=== PATIENT | female | born 1960 | race Caucasian/White ===

== ENCOUNTER 2023-05-23 08:04 | Outpatient (REF) | payer BC, SELFPAY ==
--- NOTE | ~2023-05-23 | XR_ITS ---
EXAMINATION: XR SHOULDER, LEFT CLINICAL INFORMATION: Left shoulder pain COMPARISON: None available. TECHNIQUE: Two views of the left shoulder. FINDINGS: The bones and soft tissues are normal. No fracture. Glenohumeral and acromioclavicular alignment is anatomic with normal joint space. No abnormal soft tissue calcifications. XR/XR shoulder LT min 2V IMPRESSION: Normal left shoulder.
== END 2023-05-23 08:05 | disposition home or self-care (01) ==
LOC: HO.HOSX 08:04
PROVIDERS: Visit Provider Orthopaedic Surgery
DX: M25.512 Pain in left shoulder (principal); Z79.899 Other long term (current) drug therapy
CPT/HCPCS: 73030

== ENCOUNTER 2023-05-23 14:40 | Outpatient (AMB) | payer BC, SELFPAY ==
--- NOTE | 2023-05-23 14:50 | A.OFFVIS_ITS ---
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 Wilde. Patient reports bilateral shoulder surgeries. Patient's most recent surgery was several years ago. Patient states that she re-injured her left shoulder approximately 1 year ago while lifting a heavy object. Since that time her pain and weakness have gotten progressively worse in spite of continued non operative treatments. She has had injections in the past which gave her minimal relief. She has also tried Tylenol and anti-inflammatory medicines which gave her only mild relief. She has done physical therapy for 12 weeks over the last 6 months which aggravated her pain. The patient reports difficulty lifting her left hand above shoulder height. Allergies Penicillins Allergy (Verified 05/23/23 15:01) Unknown Medication List - Last Reconciled 05/23/23 by Coleman Wilde MD azelastine intranasal escitalopram oxalate 20 mg PO DAILY fluticasone propion-salmeterol 230-21 mcg/actuation (Advair HFA) 1 puff inhalation BID lorazepam (Ativan) 1 mg orally Take one tab 2 hours before your MRI; take second tab 30 mintues before your MRI; montelukast 10 mg PO DAILY rosuvastatin 10 mg PO DAILY PFSH Surgical History (Updated 05/23/23 @ 15:03 by NAILA Warner) Hx of shoulder surgery Social History (Updated 05/23/23 @ 15:03 by NAILA Warner) Current occupation: right hand dominant Physical Exam Const Other: Well-nourished well-developed very friendly female awake alert and oriented x3 in no acute distress Extrem Other: Bilateral upper extremity examination shows good capillary refill, no skin lesions noted, normal sensation light touch Left shoulder examination shows decreased range of motion when compared to her right shoulder, 4+ out of 5 strength with supraspinatus testing, positive impingement signs, mild tenderness over her acromioclavicular joint, no instability Results Reviewed Results Reviewed: X-rays of the patient's left shoulder show mild acromioclavicular joint angi rowing, a type 2 acromion, no acute bony abnormalities Assessment & Plan Assessment & Plan (1) Left shoulder pain: Code(s): M25.512 - Pain in left shoulder Plan: Ms. Michaela Looney presents with progressively worsening left shoulder pain and weakness possibly due to a full-thickness rotator cuff tear. Thus, I will send the patient for an MRI of her left shoulder for further evaluation. I will contact her by phone once the MRI results are available. Feel free to call me at any time should questions regarding her orthopedic management arise. Thank you very much for asking me to see this very friendly patient. I spent 22 minutes in reviewing the patient's records and imaging studies, seeing the patient and documenting in the medical record. Orders: Orders PT Evaluation and Treatment 05/23/23 M25.512 - Pain in left shoulder XR shoulder LT min 2V 05/23/23 M25.512 - Pain in left shoulder MR shoulder LT wo con 05/23/23 M25.512 - Pain in left shoulder Medications: New lorazepam (Ativan) 1 mg orally Take one tab 2 hours before your MRI; take second tab 30 mintues before your MRI; 2 tabs 0RF anxiety Coding Level of Care Code Est Pt Level 2 (60696) Diagnoses Left shoulder pain M25.512
== END 2023-05-23 15:14 | disposition home or self-care (01) ==
PROVIDERS: PCP Family Medicine; Visit Provider Orthopaedic Surgery
DX: M25.512 Pain in left shoulder (principal)
CPT/HCPCS: 99212

== ENCOUNTER 2023-06-29 13:50 | Outpatient (AMB) | payer BC, SELFPAY ==
--- NOTE | 2023-06-29 13:55 | MHC.OFFVIS ---
Intake Intake Visit Reasons: Bilateral shoulder pain Intake Note: The patient presents with complaints of progressively worsening bilateral shoulder pains, right greater than left. She describes her pains as sharp in nature. She has undergone 2 arthroscopic surgeries on both of her shoulders. She got fairly good relief from those surgeries initially. She has done physical therapy in the past which aggravated her pain. She wishes to hold off on further surgery if at all possible. She has aggravated her shoulders by swimming 60 laps of crawl stroke in the pool daily. Allergies Penicillins Allergy (Verified 06/29/23 13:55) Unknown [facility] Surgical History Hx of shoulder surgery Social History Alcohol intake: never Patient Tobacco Use Status: Never used Tobacco Current occupation: right hand dominant Physical Exam Const Other: Well-nourished well-developed very friendly female awake alert and oriented x3 in no acute distress Extrem Other: Bilateral upper extremity examination shows good capillary refill, no skin lesions noted, normal sensation light touch Bilateral shoulder examination shows forward flexion to 170 degrees, external rotation to 60 degrees, internal rotation to level L2, 5/5 strength with supraspinatus testing, positive impingement signs, no instability Office Procedures Joint Injection/Drain Joint Injection/Drain Primary Site: right shoulder Prep: site was prepped using aseptic technique Injected: 40 mg of, DepoMedrol and 1% plain lidocaine Procedure: The patient tolerated the procedure well Coding 49938 - Large joint Procedure code (CPT) selection complete Results Reviewed Results Reviewed: MRI of the patient's left shoulder shows mild acromioclavicular joint narrowing, a type 2 acromion, signal change within the supraspinatus tendon most likely due to rotator cuff tendinosis Assessment & Plan Assessment & Plan (1) Impingement of right shoulder: Code(s): M25.811 - Other specified joint disorders, right shoulder (2) Impingement syndrome of left shoulder: Code(s): M75.42 - Impingement syndrome of left shoulder (3) Bilateral shoulder pain: Code(s): M25.511 - Pain in right shoulder; M25.512 - Pain in left shoulder Plan Ms. Michaela Looney presents with bilateral shoulder pains, right greater than left, due to impingement syndrome as well as rotator cuff tendinosis. I had a lengthy discussion with the patient regarding the treatment options. She wishes to hold off on surgery for as long as possible. I agree with this plan. The risks and benefits of a right shoulder cortisone injection were discussed at length with the patient. The patient wished to proceed. She tolerated the injection well. Activity modifications were discussed at length with the patient. She will follow up with me on an as-needed basis should her symptoms not plateau at an unacceptable level over the next few weeks. Feel free to call me at any time should questions regarding her orthopedic management arise. I spent 22 minutes in reviewing the patient's records and imaging studies, seeing the patient and documenting in the medical record. Orders: Orders AMB Joint Injection/Aspiration Today M25.811 - Other specified joint disorders, right shoulder Coding Level of Care Code Est Pt Level 2 (97817) Diagnoses Impingement of right shoulder M25.811 Impingement syndrome of left shoulder M75.42 Bilateral shoulder pain M25.511; M25.512 CPT Codes Coding - 24967 Large joint: 18546 - Large joint ([id number])
== END 2023-06-29 14:25 | disposition home or self-care (01) ==
PROVIDERS: PCP Family Medicine; Visit Provider Orthopaedic Surgery
DX: M25.811 Other specified joint disorders, right shoulder (principal); M75.42 Impingement syndrome of left shoulder; M25.511 Pain in right shoulder
CPT/HCPCS: 20610; 99213

== ENCOUNTER → 2023-06-29 13:50 | Outpatient (BNVA) | payer BC, SELFPAY | PROVIDERS: PCP Family Medicine; Visit Provider Orthopaedic Surgery | DX: M25.811 Other specified joint disorders, right shoulder (principal); M75.42 Impingement syndrome of left shoulder; M25.511 Pain in right shoulder; M25.512 Pain in left shoulder | CPT/HCPCS: 20610; J1020 ==

== ENCOUNTER 2023-08-16 07:30 | Outpatient (REF) | payer BC, SELFPAY ==
--- NOTE | ~2023-08-16 | XR_ITS ---
EXAMINATION: XR SHOULDER, RIGHT CLINICAL INFORMATION: Right shoulder pain COMPARISON: None available. TECHNIQUE: AP external rotation, scapular Y views of the right shoulder. FINDINGS: The bones and soft tissues are normal. No fracture. Glenohumeral and acromioclavicular alignment is anatomic with normal joint space. No abnormal soft tissue calcifications. XR/XR shoulder RT min 2V IMPRESSION: Normal right shoulder.
== END 2023-08-16 07:31 | disposition home or self-care (01) ==
LOC: HO.HOSX 07:30
PROVIDERS: Visit Provider Orthopaedic Surgery
DX: M25.811 Other specified joint disorders, right shoulder (principal); M75.42 Impingement syndrome of left shoulder
CPT/HCPCS: 73030

== ENCOUNTER 2023-08-16 14:33 | Outpatient (AMB) | payer BC, SELFPAY ==
--- NOTE | 2023-08-16 14:36 | A.OFFVIS_ITS ---
Intake Intake Visit Reasons: new Prob- Right shoulder pain/Injection Intake Note: Rachell is a 63 year old female who presents for a follow up of Right shoulder pain. Patient reports that she had an injection in her Right shoulder on 06/29/2023 and she has relief for about one month. The patient has had 2 sessions of physical therapy recently. She states that the therapy has helped both of her shoulders. She denies any weakness. She continues to swim as much as possible for exercise. Allergies Penicillins Allergy (Verified 08/16/23 14:49) Unknown Medication List - Last Reconciled 08/17/23 by Coleman Wilde MD azelastine intranasal escitalopram oxalate 20 mg PO DAILY fluticasone propion-salmeterol 230-21 mcg/actuation (Advair HFA) 1 puff inhalation BID montelukast 10 mg PO DAILY rosuvastatin 10 mg PO DAILY PFSH Surgical History Hx of shoulder surgery Social History Alcohol intake: never Patient Tobacco Use Status: Never used Tobacco Current occupation: right hand dominant Physical Exam Const Other: Well-nourished well-developed very friendly female awake alert and oriented x3 in no acute distress Extrem Other: Bilateral upper extremity examination shows good capillary refill, no skin le sions noted, normal sensation light touch Right shoulder examination shows full range of motion when compared to her left shoulder, 5/5 strength with supraspinatus testing, positive impingement signs, mild discomfort with resisted forward flexion, no instability Results Reviewed Results Reviewed: X-rays of the patient's right shoulder show bony changes consistent with distal clavicle excision and acromioplasty, no acute bony abnormalities Assessment & Plan Assessment & Plan (1) Impingement syndrome of left shoulder: Code(s): M75.42 - Impingement syndrome of left shoulder (2) Impingement of right shoulder: Code(s): M25.811 - Other specified joint disorders, right shoulder Plan Ms. Michaela Looney presents with bilateral shoulder pains due to rotator cuff tendinosis. I had a lengthy discussion with the patient regarding the treatment options. We will hold off on a left shoulder cortisone injection at this time because the patient seems to be benefitting from her physical therapy sessions. Activity modifications and stretching exercises were discussed at length with the patient. She will contact me prior to her follow-up appointment in 2 months should her symptoms worsen in any way. Feel free to call me at any time should questions regarding her orthopedic management arise. I spent 22 minutes in reviewing the patient's records and imaging studies, seeing the patient and documenting in the medical record. Orders: Orders XR shoulder RT min 2V 08/16/23 M25.811 - Other specified joint disorders, right shoulder PT Evaluation and Treatment 08/16/23 M25.811 - Other specified joint disorders, right shoulder, M75.42 - Impingement syndrome of left shoulder Coding Level of Care Code Est Pt Level 2 (59394) Diagnoses Impingement syndrome of left shoulder M75.42 Impingement of right shoulder M25.811
== END 2023-08-16 15:12 | disposition home or self-care (01) ==
PROVIDERS: PCP Family Medicine; Visit Provider Orthopaedic Surgery
DX: M75.42 Impingement syndrome of left shoulder (principal); M25.811 Other specified joint disorders, right shoulder
CPT/HCPCS: 99213